=== PATIENT | female | born 1980 | race Caucasian/White ===

== ENCOUNTER 2020-03-30 20:28 | Emergency (ER) | payer SELFPAY ==
[~2020-03-30] VITALS: Ht 167.6 cm; Wt 90.9 kg
[2020-03-30 20:43] VITALS: BP 119/80; Ht 167.6 cm; Wt 90.9 kg
[2020-03-30] MEDS ORDERED: AUGMENTIN 875-11 TAB PO (21:00)
== END 2020-03-30 21:10 | disposition home or self-care (01) ==
LOC: D.ER 20:28
DX: H66.93 Otitis media, unspecified, bilateral (principal)